=== PATIENT | male | born 1950 | race Caucasian/White ===

== ENCOUNTER 2021-03-29 12:06 | Emergency (ER) | payer OTHER ==
[~2021-03-29] VITALS: Ht 172.7 cm; Wt 90.7 kg
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
[2021-03-29] MEDS ORDERED: NORVASC5 MG PO (13:43)
[2021-03-29 14:08] VITALS: BP 183/101
== END 2021-03-29 14:08 | disposition home or self-care (01) ==
LOC: ER 12:06
DX: M54.2 Cervicalgia (principal); M25.562 Pain in left knee; I10 Essential (primary) hypertension; V89.2XXA Person injured in unspecified motor-vehicle accident, traffic, initial encounter; Y93.89 Activity, other specified; Y92.89 Other specified places as the place of occurrence of the external cause; Y99.8 Other external cause status